=== PATIENT | female | born 1955 | race Caucasian/White ===

== ENCOUNTER 2020-02-22 12:45 | Emergency (ER) | payer MEDICARE, SELFPAY ==
--- NOTE | 2020-02-22 12:57 | ED.URI ---
HPI - URI/Sore Throat General Chief Complaint: Headache Stated Complaint: flu like symptoms [id number] Time Seen by Provider: 02/22/20 12:52 Source: patient Mode of arrival: ambulatory Limitations: no limitations History of Present Illness MD elicited complaint: other (body aches, fatigue, headache) Onset (ago): day(s) (5) Consistency: constant Severity: moderate Able to tolerate fluids by mouth: Yes Exacerbating factors: nothing Relieving factors: nothing Context: sick contacts (spouse with symptoms) Associated symptoms: chills Treatments prior to arrival: none Related Data Allergies Allergy/AdvReac Type Severity Reaction Status Date / Time No Known Allergies Allergy Unverified 02/06/20 14:56 [No Known Allergies*] Review of Systems Review of Systems: Constitutional : no Fever, positive Chills, positive fatigue, positive Malaise ENT/Mouth : no sore throat, positive runny nose Eyes: No Discharge Cardiovascular : No Chest Pain, No SOB Respiratory : No Cough, No Sputum Gastrointestinal : No Nausea, No Vomiting, No Diarrhea Genitourinary : No Dysuria, No Urinary Frequency Musculoskeletal : positive Myalgia Skin : No rash Neuro : No Headache PMFSH Past Medical History Attestation statement: The following information was validated with the patient. Medical History (Updated 02/22/20 @ 12:59 by Suellen Zimmerman DO) Asthma Social History Social History (Updated 02/22/20 @ 13:00 by Suellen Zimmerman DO) Smoking Status: Never smoker Use of substances other than those prescribed or required for medical reasons: No Advance Directives: No Advance Directives Information Provided: No Physical Exam Vital Signs and I&O and Narrative: Appearance: Alert. Oriented X3. No acute distress. Eyes: Pupils equal, round and reactive to light. Neck: Normal inspection. Neck supple. CVS: Normal heart rate and rhythm. Pulses normal. Respiratory: No respiratory distress. Breath sounds normal. Abdomen: Soft Skin: Skin warm and dry. Normal skin color. Extremities: No lower extremity edema. Neuro: Oriented X 3. No motor deficit. No sensory deficit. MDM - URI/Sore Throat MDM Narrative Medical decision making narrative: not toxic, well hydrated, vague viral syndrome, clear lungs, no hypoxia - COVID test ordered, sent home with precautions Discharge Plan Discharge Clinical Impression: Viral syndrome Patient Disposition: Home, Self-Care Instructions: COVID-19 (Coronavirus Disease 2019) (ED) Additional Instructions: you were tested for COVID we will call you with results in 2 to 4 days, wear a mask, socially distance
[2020-02-22 13:18] VITALS: BP 143/88; PULSE 58; RESP 20; TEMP 36.6; O2SAT 99; BMI 55.1
== END 2020-02-22 13:48 | disposition home or self-care (01) ==
PROVIDERS: Emergency Provider Emergency Medicine
DX: B34.9 Viral infection, unspecified (principal); Z20.828 Contact with and (suspected) exposure to other viral communicable diseases; R53.83 Other fatigue
CPT/HCPCS: 36415; 87635; 99283; 99284

== ENCOUNTER 2020-09-18 23:17 | Emergency (ER) | payer MEDICARE, MEDICAID, SELFPAY ==
[2020-09-18 23:24] VITALS: BP 172/88; PULSE 62; RESP 16; TEMP 36.8; O2SAT 99; BMI 26.6
[2020-09-18 23:43] LABS: IDNOW Serial# 9DD0AD1C
[2020-09-18 23:44] LABS: COVID-19 Test Positive (Negative)
--- NOTE | 2020-09-18 23:46 | ED.GENADULT ---
HPI - General Adult General Chief complaint: General Medical Stated complaint: Covid testing Time Seen by Provider: 09/18/20 23:34 Source: patient Mode of arrival: ambulatory Limitations: no limitations History of Present Illness HPI narrative: Patient comes to emergency room complaining of having more asthma exacerbations than usual, patient states that she has loss of taste and smell. Patient says that her tested positive for COVID 2 weeks ago. Patient requesting a COVID test. At this time, patient denies chest pain, no shortness of breath. Patient states that over the last 3 weeks she has had multiple episodes of diarrhea but not the last few days. No vomiting. No fever chills. Related Data Previous Rx's Medication Instructions Recorded prednisone 50 mg PO DAILY #4 tab 09/19/20 Allergies Allergy/AdvReac Type Severity Reaction Status Date / Time No Known Allergies Allergy Verified 09/18/20 23:24 [No Known Allergies*] Review of Systems Review of Systems: Constitutional : No Weight loss, No Fever, No Chills, No Night Sweats, No Fatigue, No Malaise ENT/Mouth : No Hearing loss, No Ear Pain, No Nasal Congestion, No Sinus Pain, No Hoarseness, No sore throat, No Rhinorrhea, No Swallowing Difficulty Eyes: No Eye Pain, No Swelling, No Redness, No Foreign Body, No Discharge, No Vision Changes Cardiovascular : No Chest Pain, No SOB, No Dyspnea on Exertion, No Orthopnea, No Edema, No Palpitations Respiratory : Complaining of dry Cough, No Sputum, increase asthma exacerbations, not at this time, No Smoke Exposure, No Dyspnea Gastrointestinal : No Nausea, No Vomiting, resolved diarrhea, No Constipation, No abdominal Pain, No Hematochezia, No Melena Genitourinary : no irregular bleeding, No Dysuria, No Urinary Frequency, No Hematuria, No Urinary Incontinence, No Urgency, No Flank Pain, No Urinary Flow Changes, No Hesitancy Musculoskeletal : No joint pain, No Myalgias, No Joint Swelling Skin : No Skin Lesions, No rash Neuro : No Weakness, No Numbness, No Paresthesias, No Loss of Consciousness, No Dizziness, No Headache Psych : No Anxiety/Panic, No Depression, No SI/HI/AH/VH, No Social Issues, Heme/Lymph: No Bruising, No Bleeding,No Lymphadenopathy Endocrine : No Polyuria, No Polydipsia, No Temperature Intolerance PMFSH Past Medical History Medical History Asthma Asthma Social History Social History (Updated 02/22/20 @ 13:00 by Suellen Zimmerman DO) Alcohol intake: never Smoking Status: Never smoker Advance Directives: No Advance Directives Information Provided: No Physical Exam Vital Signs: Vital Signs: Last Vital Signs Temp 98.2 F 09/18/20 23:24 Pulse 62 09/18/20 23:24 Resp 16 09/18/20 23:24 BP 172/88 H 09/18/20 23:24 Pulse Ox 99 09/18/20 23:24 Body Mass Index 26.6 Appearance: Alert. Oriented X3. No acute distress. Eyes: Pupils equal, round and reactive to light. ENT: Pharynx normal. Neck: Normal inspection. Neck supple. No lymph nodes noted. No crepitus CVS: Normal heart rate and rhythm. Pulses normal. Normal S1 and S2 Respiratory: No respiratory distress. Breath sounds normal. No Wheezing. No rales Abdomen: Soft and nontender. No rigidity. No distention. good BS x4 Skin: Skin warm and dry. Normal skin color. Normal skin turgor. Extremities: No lower extremity edema. No lower extremity edema. No Lacerations. No Rash Neuro: Oriented X 3. No motor deficit. No sensory deficit. Moving all extermities. No slurred speech. Course Course Course Narrative: Patient's physical exam within normal limits, oxygen saturation 99% on room air, no respiratory distress. I discussed with the patient that she tested positive for COVID-19. We will go ahead and give her prednisone since she has been having increased asthma exacerbations that respond well to albuterol pump treatments, patient not wheezing at this time. Medical Decision Making Lab Data Labs: Lab Results 09/18/20 Range/Units 23:31 COVID-19 ([facility]) Positive A (Negative) COVID-19 Clin Com See Note Discharge Plan Discharge Clinical Impression: COVID-19 Patient Disposition: Home, Self-Care Instructions: COVID-19 (Coronavirus Disease 2019) (ED) Additional Instructions: Leaning to isolate for 14 days at home. Please follow-up with your primary care physician tomorrow. If you have any worsening or new symptoms, please return to the emergency room or call 911 Prescriptions: New prednisone 50 mg tablet 50 mg PO DAILY Qty: 4 RF: 0
[2020-09-19] MEDS: predniSONE 10 MG TABLET 50 MG PO (00:14)
== END 2020-09-19 01:18 | disposition home or self-care (01) ==
PROVIDERS: Emergency Provider Emergency Medicine
DX: U07.1 COVID-19 (principal); J45.909 Unspecified asthma, uncomplicated
CPT/HCPCS: 36415; 87635; 99283